=== PATIENT | female | born 1995 | race Caucasian/White ===

== ENCOUNTER 2019-06-06 02:33 | Emergency (ER) | payer SELFPAY ==
[~2019-06-06] VITALS: Ht 152.4 cm; Wt 75.0 kg
[2019-06-06 02:40] VITALS: BP 130/68
== END 2019-06-06 05:31 | disposition left against medical advice (07) ==
LOC: ER 02:33
DX: Z53.21 Procedure and treatment not carried out due to patient leaving prior to being seen by health care provider (principal)